=== PATIENT | female | born 1960 | race Caucasian/White ===

== ENCOUNTER 2016-12-02 22:42 | Emergency (ER) | payer MEDICAID, OTHER ==
[~2016-12-02] VITALS: Ht 162.6 cm; Wt 60.5 kg
[2016-12-02 22:47] VITALS: BP 145/102; PULSE 72; RESP 20; O2SAT 95
--- NOTE | 2016-12-03 01:34 | ED.REPORT ---
HPI-Extremity Problem Upper Date of Service December 03, 2016 ED Provider: Alfred Olivia DO A healthy 56 year old female presents to the ED with left wrist pain onset two days ago. The patient denies recent injury/trauma, numbness, weakness, or other symptoms. She has been using her wrist more frequently than usual, specifically flexing and extending, in order to clean up after her ill cat. Nursing Notes Stated Complaint: L HAND PAIN Chief Complaint: Extremity Trauma Nursing Notes Reviewed: Yes Allergies: Coded Allergies: prednisone (Verified Allergy, Mild, 12/02/16) General Time Seen by MD: 00:48 Chief Complaint Other (Left Wrist Pain) Hx Obtained From: Patient Arrived By: Walk-in Onset Occurred: 2 days ago Symptom Duration: Since onset Location: : Wrist left Quality: Painful Severity: Current: Moderate Severity: Maximum: Moderate Pertinent Negative: Relieved by nothing Immunizations: Unknown Recent Healthcare: No recent doctor visit Past Medical History Past Medical History None reported Past Surgical History None reported Smoking History Unknown if Ever Smoker Ambulatory Status Independent Review of Systems Constitutional: Denies: Fever Musculoskeletal: Reports: Joint pain (Left wrist) Neurologic: Denies: Numbness, Weakness Complete sys rev & neg: except as marked. Respiratory: Denies: Non-productive cough, Shortness of breath GI: Denies: Diarrhea, Vomiting Physical Exam Initial Vital Signs Vital Signs (First) Date Time Temp Pulse Resp B/P Pulse Ox O2 Delivery O2 Flow Rate FiO2 12/02/16 22:47 36 72 20 145/102 95 Room Air Initial VS: Reviewed Head / Eyes: Atraumatic, Normocephalic ENT: Conjunctiva normal, No scleral icterus Neck: Supple, Full range of motion Skin: Warm, Dry, No cyanosis Neurologic: Alert, Oriented, Nonfocal Psychiatric: Mood/affect normal, Behavior normal, Normal thought content General/Constitutional: Awake, Alert Wrist / Hand: Atraumatic, Full range of motion, No deformity, Neurologic intact , Vascular intact Left Wrist: Positive: Tenderness present... (Volar wrist) Interpretation & Diagnostics X-Ray Interpretation Xray Interpretation: Degenerative changes No fracture Study Performed: 3 View X-Ray Ordered: Wrist left Interpretation / Wet Read by: Wet read ED physician Re-Eval/Medical Decision Re-Evaluation/Progress : Time of Eval: 01:30 Patient Status: Condition improved Re-Evaluation/Progress Note: Discussed with patient x-ray results, diagnosis, and plan for discharge. Follow-up and return to the ER instructions given. Patient agrees with plan for care and all questions were addressed. Counseled Regarding: Diagnosis, Need for follow-up, When/why to return to ED Discharge & Departure Impression: Primary Impression: Left wrist pain Additional Impression: Tendinitis Disposition: Home Discharge Condition All VS Reviewed: Yes Condition: Improved Patient Instructions: Wrist Injury (GEN), Splint Care (ED) Additional Instructions: I suspect that your pain is related to overuse. Rest your wrist for the next 5 days. Wear the wrist immobilizer. Carpal tunnel syndrome is a possibility as well. I would like you to have a recheck next week. Call your doctor or the referral clinic or the referral orthopedic surgeon for follow-up. You may take 1 -2 [place] every 6 hours as needed for severe pain. [id number] anti- inflammatories as directed for moderate pain. Do not drive or drink alcohol or consume acetaminophen while taking the [place]. I did not appreciate a fracture on your x-rays. Our radiologist will over read this and the official report be available tomorrow. Have this reviewed by your primary care physician as well. Your blood pressure was also elevated. Check this 3 times daily and discussed this in your follow-up. Referrals: NOPCP (PCP) Ryder Brown DO [facility] [employer] Attestation Portions of this note were transcribed by Marjan Russo. I, Dr. Olivia, personally performed the history, physical exam, and medical decision-making; I reviewed and confirmed the accuracy of the information in the transcribed note. Signed by: Rohan Shah, 12/03/2016, 02:45 copies to: Ryder Brown DO; [facility] Alfred Olivia DO December 03, 2016 01:34 MARJAN RUSSO December 03, 2016 01:39
[2016-12-03] MEDS ORDERED: _HYDROcodone/APAP 5-325 mg Tablet PO PRN (01:35)
--- NOTE | 2016-12-03 07:34 | DRSVH ---
PROCEDURE: X-RAY LEFT WRIST COMPLETE, MINIMUM THREE VIEWS ([id number]) INDICATIONS: pain TECHNIQUE: 4 views of the wrist were acquired. COMPARISON: None. FINDINGS: Bones: No fractures or dislocations. No suspicious bony lesions. Scaphoid view: Negative Soft tissues: No suspicious soft tissue calcifications. IMPRESSION: No acute fracture. No osseous lesion. If clinical suspicion and/or symptoms persist, fur ther assessment with repeat plainfilms, or advanced imaging (e.g., CT, MRI, or bone scan) may be help ful for further assessment. Dictated by: Gisella Dai M.D. on 12/03/2016 at 7:32 Approved by: Gisella Dai M.D. on 12/03/2016 at 7:33
== END 2016-12-03 02:17 | disposition home or self-care (01) ==
LOC: SED 22:42
DX: M25.532 Pain in left wrist (principal); M65.842 Other synovitis and tenosynovitis, left hand; Z88.8 Allergy status to other drugs, medicaments and biological substances

== ENCOUNTER 2016-12-27 23:11 | Emergency (ER) | payer OTHER ==
[~2016-12-27] VITALS: Ht 162.6 cm; Wt 58.0 kg
[2016-12-27 23:12] VITALS: BP 132/82; PULSE 70; RESP 16; O2SAT 99
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
[2016-12-28] MEDS ORDERED: CYCL10TA9 PO (02:47)
[2016-12-28] MEDS ORDERED: MELO-259 PO (02:47)
[2016-12-28 02:58] VITALS: BP 128/72; PULSE 72; RESP 16; O2SAT 98
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
== END 2016-12-28 03:02 | disposition home or self-care (01) ==
LOC: SED 23:11
DX: S16.1XXA Strain of muscle, fascia and tendon at neck level, initial encounter (principal); V49.40XA Driver injured in collision with unspecified motor vehicles in traffic accident, initial encounter; Y93.89 Activity, other specified; Y92.410 Unspecified street and highway as the place of occurrence of the external cause; Y99.8 Other external cause status; M47.812 Spondylosis without myelopathy or radiculopathy, cervical region; R51 Headache; F17.200 Nicotine dependence, unspecified, uncomplicated; Z88.8 Allergy status to other drugs, medicaments and biological substances
CPT/HCPCS: 72040; 72125; 96372; 99285; J1885

== ENCOUNTER 2017-02-20 07:16 | Emergency (ER) | payer OTHER ==
[~2017-02-20] VITALS: Ht 162.6 cm; Wt 56.8 kg
[~2017-02-20 07:16] MED LIST: CYCL10TA9 PO; MELO-259 PO
[2017-02-20 07:25] VITALS: BP 167/102; PULSE 67; RESP 18; O2SAT 98
--- NOTE | 2017-02-20 07:41 | ED.REPORT ---
HPI-Abd Pain F 40 and Over Date of Service Feb 20, 2017 ED Provider: Erwin Mcfadden Patient is an otherwise healthy 56 year old female who presents to the ED complaining of nausea onset 4 days ago. Associated symptoms include chills, sweats, cough, and vomiting. She denies dysuria, hematemesis, chest pain, diarrhea, rash, or any other symptoms. She smokes marijuana regularly but has not smoked for the past 2 days. She takes Cymbalta daily and her dose was just increased 2 weeks ago. Nursing Notes Stated Complaint: FEVER/CHILLS/NAUSEA Chief Complaint: Female Abdominal Pain Nursing Notes Reviewed: Yes Allergies: Coded Allergies: prednisone (Verified Allergy, Mild, 12/27/16) Scheduled Meloxicam (Meloxicam) 7.5 Mg Tablet 7.5 MG PO BID Scheduled PRN Cyclobenzaprine (Cyclobenzaprine) 10 Mg Tablet 10 MG PO TID PRN PRN Spasm Ondansetron ODT (Zofran ODT) 4 Mg Tablet 4 MG PO Q4H PRN PRN For Nausea General Time Seen by MD: 07:41 Chief Complaint Nausea Hx Obtained From: Patient Arrived By: Walk-in Sudden in Onset?: Yes Onset Occurred: 4 days ago Symptom Duration: Since onset Risk Factors )( AAA Risk Stratification SmokingNo Hypertension, No Marfan's syndrome, No Prior AAA Risk factors reviewed Past Medical History Past Medical History None reported Past Surgical History Hysterectomy Laparoscopy Rotator cuff x3 Smoking History Current Every Day Smoker Social History Alcohol Use: Denies alcohol use Drug Use: THC Ambulatory Status Independent Review of Systems Constitutional: Reports: Chills Respiratory: Reports: Non-productive cough Cardiovascular: Denies: Chest pain GI: Reports: Nausea, Vomiting, Denies: Diarrhea, Hematemesis Female: Denies: Dysuria Complete sys rev & neg: except as marked. Skin: Reports Diaphoresis, Denies Rash Physical Exam Vital Signs Vital Signs (First) Date Time Temp Pulse Resp B/P Pulse Ox O2 Delivery O2 Flow Rate FiO2 02/20/17 07:25 36.6 67 18 167/102 98 02/20/17 11:58 Room Air Initial VS: Reviewed, Vital signs abnormal Psychiatric: Mood/affect normal, Behavior normal, Normal thought content General/Constitutional: Awake, Alert Distress / Hydration: Positive: Distress moderate Behavior: Positive: Restless Respiratory / Chest: Breath sounds NL, Breath sounds = bilat, No respiratory distress Cardiovascular: Heart rate NL, Regular rhythm, Heart sounds NL Abdomen: Atraumatic, Soft Back: Atraumatic Head / Eyes: Atraumatic, Normocephalic Skin: Warm, Dry Neurologic: Oriented X3, Speech NL Neck: Full range of motion Interpretation & Diagnostics Lab Results Interpretation Result Diagram: 02/20/17 0800 02/20/17 0800 Test 02/20/17 08:00 02/20/17 09:19 White Blood Count 9.9th/mm3 (3.8-10.1) Red Blood Count 4.91mil/mm3 (3.90-5.20) Hemoglobin 14.4g/dL (12.0-15.6) Hematocrit 42.0% (35.0-46.0) Mean Corpuscular Volume 85.5fL (81-100) Mean Corpuscular Hemoglobin 29.3pg (27.0-35.0) Mean Corpuscular Hemoglobin Concent 34.3% (32.0-37.0) Red Cell Distribution Width 14.4% (12.3-15.4) Platelet Count 304bil/L (150-400) Neutrophils (%) (Auto) 74.7% (40-74) Lymphocytes (%) (Auto) 17.7% (14-46) Monocytes (%) (Auto) 7.1% (4-12) Eosinophils (%) (Auto) 0.1% (0-5) Basophils (%) (Auto) 0.2% (0-3) Sodium Level 138mEq/L (134-144) Potassium Level 3.2mEq/L (3.5-5.2) Chloride Level 99mEq/L (97-108) Carbon Dioxide Level 22mmol/L (18-29) Blood Urea Nitrogen 20mg/dL (6-24) Creatinine 0.68mg/dL (0.57-1.00) Estimat Glomerular Filtration Rate 127mL/min (>59) Glucose Level 113mg/dL (60-99) Calcium Level 9.4mg/dL (8.5-10.1) Magnesium Level 2.0mg/dL (1.6-2.6) Total Bilirubin 0.5mg/dL (0.0-1.2) Aspartate Amino Transf (AST/SGOT) 24U/L (0-50) Alanine Aminotransferase (ALT/SGPT) 23U/L (0-32) Alkaline Phosphatase 78U/L (25-150) Troponin T 0.010ug/L (0.0-0.011) Total Protein 7.8g/dL (6.4-8.4) Albumin 4.3g/dL (3.4-5.0) Lipase 31U/L (13-60) Hold Urine Received (Received) Lab Results Interpretation: CT KUB: IMPRESSION: 1. No kidney stones. No abnormality other than a cyst in the left kidney is seen in the kidneys, ureters, and bladder. Dictated by: Zachary Hannah M.D. on 02/20/2017 at 12:10 Approved by: Zachary Hannah M.D. on 02/20/2017 at 12:17 ECG Interpretation ECG Interpretation: Sinus rate 63 No ischemia QTC 455 Time: 09:25 Interpreted by: ED physician Re-Eval/Medical Decision Med Decision/Clinical Course Benign abdominal exam, no vomiting while in the ER only complains of nausea however able to tolerate both oral solids and liquids well in the ER. Extensive workup performed and no obvious source for this. Her blood pressures minimally normal however does not seem to represent hypertensive emergency. Discharged with Zofran and follow-up and return precautions Re-Evaluation/Progress #1: Time of Eval: 10:22 )( Re-Eval Abdomen: Soft Re-Evaluation/Progress Note: Rechecked patient. She is still nauseous and has not tried to eat or drink anything. Re-Evaluation/Progress #2: Time of Eval: 12:25 )( Re-Eval Abdomen: Soft Re-Evaluation/Progress Note: Pt tolerated oral liquids and solids well without vomiting. Discussed plan for discharge. Patient understands and agrees with plan. All questions addressed at this time. Counseled Regarding: Diagnosis, Lab results, Need for follow-up, When/why to return to ED Discharge & Departure Primary Impression: Nausea Disposition: Home Discharge Condition All VS Reviewed: Yes Condition: Improved Additional Instructions: Thank you for entrusting us with your care. We did not identify a dangerous cause for your symptoms at this time. You make take Zofran as needed for your nausea. Return to the emergency department for new or worsening symptoms. Referrals: NOPCP (PCP) Scribe Attestation Portions of this note were transcribed by Padmini Mora. I, Dr. Mcfadden personally performed the history, physical exam and medical decision-making; I reviewed and confirmed the accuracy of the information in the transcribed note. Signed by: Rohan Quiroz, 02/20/17 at 1227 Erwin Mcfadden DO Feb 20, 2017 07:41 PADMINI MORA Feb 20, 2017 07:53
[2017-02-20] MEDS ORDERED: 0.9% Sodium Chloride 1,000 ML IV ONE (07:52)
[2017-02-20] MEDS ORDERED: Promethazine Inj 25 MG in 0.9% Sodium Chloride 50 ML IV ONE (07:55)
[2017-02-20 08:17] LABS: Mean Corpuscular Hemoglobin 29.3 pg (27.0-35.0); Mean Corpuscular Volume 85.5 fL (81-100)
[2017-02-20 08:18] LABS: BASOPHILS % (AUTO) 0.2 % (0-3); EOSINOPHILS % (AUTO) 0.1 % (0-5); MONOCYTES % (AUTO) 7.1 % (4-12); NEUTROPHILS % (AUTO) 74.7 % (40-74); Platelet Count 304 bil/L (150-400)
[2017-02-20] MEDS ORDERED: Haloperidol 5 mg/mL Inj IM ONE (09:10)
[2017-02-20 11:58] VITALS: BP 155/75; PULSE 65; RESP 16; O2SAT 99
--- NOTE | 2017-02-20 12:19 | DRSVH ---
PROCEDURE: CT KUB ([id number]) INDICATIONS: VOMITING, hematuria TECHNIQUE: Noncontrast 5 mm thick sections acquired from the diaphragms to the symphysis. 5 mm thick coronal an d sagittal reformats were then performed. For radiation dose reduction, the following was used: aut omated exposure control, adjustment of mA and/or kV according to patient size. COMPARISON: None. FINDINGS: Image quality: Grade Lung bases: Lung bases are clear. Heart size is normal. Urinary system: Both kidneys are normal in size. No kidney stones. There is a 2 cm area of decrease d attenuation posteriorly at the mid to upper pole of the left kidney. Hounsfield units are less than 10 indicating it is likely to be a cyst. No hydronephrosis or perinephric fat stranding there is an area of decreased attenuation approximately 2 cm in size posteriorly on the left at the mid to lower . Both ureters appear non-dilated throughout their expected courses. Bladder wall thickness is norm al; no calcified bladder stones. Other solid organs: Liver and spleen are normal in size. Gallbladder shows no abnormality.. Pancre as is normal in contours. No adrenal nodules. Peritoneum and bowel: Unenhanced bowel loops demonstrate normal wall thickness and caliber. No free fluid or air. A normal appendix is present. Nodes and vessels: No retroperitoneal or mesenteric adenopathy by size criteria. Aorta and inferior vena cava are normal in caliber. Abdominal wall: No ventral hernias. Pelvis: No free pelvic fluid. No inguinal hernias or adenopathy. Uterus is thought to be removed. N either ovary is seen. Bones: No suspicious bony lesions. No vertebral body compression fractures. IMPRESSION: 1. No kidney stones. No abnormality other than a cyst in the left kidney is seen in the kidneys, uret ers, and bladder. Dictated by: Zachary Hannah M.D. on 02/20/2017 at 12:10 Approved by: Zachary Hannah M.D. on 02/20/2017 at 12:17
[2017-02-20] MEDS ORDERED: Ondansetron 8 mg ODT Tablet PO ONE (12:20)
[2017-02-20] MEDS ORDERED: ONDA4TAB9 PO (12:29)
[2017-02-20 12:41] VITALS: BP 162/90; PULSE 70; RESP 18; O2SAT 99
== END 2017-02-20 12:45 | disposition home or self-care (01) ==
LOC: SED 07:16
DX: R11.2 Nausea with vomiting, unspecified (principal); R05 Cough; F17.200 Nicotine dependence, unspecified, uncomplicated; Z88.8 Allergy status to other drugs, medicaments and biological substances
CPT/HCPCS: 36415; 74176; 80053; 83690; 83735; 84484; 85025; 93005; 96361; 96372; 96374; 99285; J1630; J2550; J7030

== ENCOUNTER 2017-02-22 16:15 | Emergency (ER) | payer OTHER ==
[~2017-02-22] VITALS: Ht 162.6 cm; Wt 56.8 kg
[~2017-02-22 16:15] MED LIST changes: +ONDA4TAB9 PO
[2017-02-22 16:40] VITALS: BP 103/65; PULSE 128; RESP 18; O2SAT 98
--- NOTE | 2017-02-22 18:47 | ED.REPORT ---
HPI-Dizziness / Weakness Date of Service Feb 22, 2017 ED Provider: Rei Summers MD Pt is a generally healthy 56 y/o female presenting to the ED c/o dizziness onset this morning. The patient was in the ED 3 days ago after experiencing chills, nausea, vomiting, and thirst. Her workup was negative and she was discharged. These symptoms seemed to improve. This morning the patient woke up at 06:30 experiencing dizziness and stating that her "legs were giving up on her " which is associated with near-syncope. She states she did lose consciousness a few times but not for more than seconds at a time. These symptoms have been persistent since this morning and are exacerbated by transitioning from sitting to standing. She denies spinning-sensation dizziness, vomiting, fever, chills. The patient believes she may be dehydrated. She has experienced vertigo previously and this is completely different. Pt denies nausea, vomiting, CP, SOB , dysuria, urinary frequency, urinary urgency, hematuria, bloody stools. She believes she has lost about 10 lbs in the period of 1 month due to lack of appetite. Nursing Notes Stated Complaint: NAUSEA,DIZZY Chief Complaint: General Complaint Nursing Notes Reviewed: Yes (Panvidea not reconciled) Allergies: Coded Allergies: prednisone (Verified Allergy, Mild, 12/27/16) Scheduled Meloxicam (Meloxicam) 7.5 Mg Tablet 7.5 MG PO BID Scheduled PRN Cyclobenzaprine (Cyclobenzaprine) 10 Mg Tablet 10 MG PO TID PRN PRN Spasm Ondansetron ODT (Zofran ODT) 4 Mg Tablet 4 MG PO Q4H PRN PRN For Nausea General Time Seen by MD: 18:45 Chief Complaint Dizzy Hx Obtained From: Patient Arrived By: Walk-in Onset Occurred: 5 - 8 hours ago Symptom Duration: Since onset Severity: Current: No pain currently Severity: Maximum: No pain Recent Healthcare: Recent doctor visit, Recent testing Similar Sx Previous: No Past Medical History Past Medical History Notes: Seen in ED recently for nausea Past Medical History Cervical spine arthritis Past Surgical History Hysterectomy 1994 Laparoscopy Rotator cuff x3 Smoking History Current Every Day Smoker Social History Alcohol Use: Denies alcohol use Drug Use: THC Ambulatory Status Independent Review of Systems Constitutional: Denies: Chills, Fever Respiratory: Denies: Shortness of breath Cardiovascular: Denies: Chest pain GI: Denies: Abdominal pain, Nausea, Vomiting Neurologic: Reports: Change LOC, Dizziness, Lightheaded, Syncope, Weakness, Denies: Headache, Spinning sensation Complete sys rev & neg: except as marked. Female: Denies: Dysuria, Hematuria, Urinary frequency, Urinary urgency Physical Exam Initial Vital Signs Vital Signs (First) Date Time Temp Pulse Resp B/P Pulse Ox O2 Delivery O2 Flow Rate FiO2 02/22/17 16:40 36.8 128 18 103/65 98 Room Air Initial VS: Reviewed, Vital signs abnormal ENT: Mucous membranes moist, Conjunctiva normal, No scleral icterus Neck: Supple, Full range of motion Abdomen / GI: Soft, Non-tender Extremities: Vascular intact, Neuro intact, No swelling Skin: Warm, Dry, No cyanosis Psychiatric: Mood/affect normal, Behavior normal, Normal thought content General/Constitutional: Awake, Alert, No acute distress, Well appearing, Cooperative, Not toxic appearing Appearance / Presentation: Positive: Cachectic Head / Eyes: Atraumatic, Normocephalic Respiratory / Chest: Breath sounds NL, Breath sounds = bilat, No respiratory distress, No rales, No rhonchi, No wheezing Cardiovascular: Regular rhythm, Heart sounds NL, No murmurs Heart Rate / Rhythm: Positive: Tachycardia (mild) Neurologic: Oriented X3, Speech NL, No motor deficits, Memory NL Interpretation & Diagnostics Lab Results Interpretation Result Diagram: 02/22/17194202/22/171942 Test 02/22/17 19:43 02/22/17 20:00 White Blood Count 12.8th/mm3 (3.8-10.1) Red Blood Count 5.25mil/mm3 (3.90-5.20) Hemoglobin 15.2g/dL (12.0-15.6) Hematocrit 43.9% (35.0-46.0) Mean Corpuscular Volume 83.6fL (81-100) Mean Corpuscular Hemoglobin 29.0pg (27.0-35.0) Mean Corpuscular Hemoglobin Concent 34.6% (32.0-37.0) Red Cell Distribution Width 13.9% (12.3-15.4) Platelet Count 346bil/L (150-400) Neutrophils (%) (Auto) 62.7% (40-74) Lymphocytes (%) (Auto) 29.5% (14-46) Monocytes (%) (Auto) 7.2% (4-12) Eosinophils (%) (Auto) 0.2% (0-5) Basophils (%) (Auto) 0.2% (0-3) D-Dimer < 0.50mg/L FEU (<0.50) Sodium Level 137mEq/L (134-144) Potassium Level 3.1mEq/L (3.5-5.2) Chloride Level 95mEq/L (97-108) Carbon Dioxide Level 22mmol/L (18-29) Blood Urea Nitrogen 23mg/dL (6-24) Creatinine 1.10mg/dL (0.57-1.00) Estimat Glomerular Filtration Rate 73mL/min (>59) Glucose Level 97mg/dL (60-99) Lactic Acid Level 1.4mmol/L (0.4-2.0) Calcium Level 9.8mg/dL (8.5-10.1) Total Bilirubin 0.7mg/dL (0.0-1.2) Aspartate Amino Transf (AST/SGOT) 23U/L (0-50) Alanine Aminotransferase (ALT/SGPT) 25U/L (0-32) Alkaline Phosphatase 74U/L (25-150) Troponin T < 0.010ug/L (0.0-0.011) Total Protein 7.9g/dL (6.4-8.4) Albumin 4.3g/dL (3.4-5.0) Lipase 44U/L (13-60) Urine Color Yellow (YELLOW) Urine Appearance Clear (CLEAR,HAZY) Urine pH 5.5 (5.0-8.0) Urine Specific [place] 1.025 (1.003-1.035) Urine Protein 30mg/dL (NEG,TRACE) Urine Glucose (UA) Negativemg/dL (NEGATIVE) Urine Ketones Negativemg/dL (NEGATIVE) Urine Occult Blood Negative (NEGATIVE) Urine Nitrite Negative (NEGATIVE) Urine Bilirubin Negative (NEGATIVE) Urine Urobilinogen Normalmg/dL (NORMAL) Urine Leukocyte Esterase Negative (NEGATIVE) Urine RBC 0-2/hpf (0-2) Urine WBC 0-5/hpf (0-5) Urine Epithelial Cells Few/hpf (NONE-MOD) Urine Crystals None seen (NONE SEEN) Urine Bacteria Few/hpf (NONE-FEW) Urine Hyaline Casts None/lpf (NONE) Urine Granular Casts None seen (NONE SEEN) Urine Waxy Casts None seen (NONE SEEN) Urine Red Blood Cell Casts None seen (NONE SEEN) Urine White Blood Cell Casts None seen (NONE SEEN) Urine Mucus Present (None Seen) Urine Trichomonas None seen (NONE SEEN) Urine Yeast None (NONE SEEN) Urinalysis Comment None Urine Culture Reflexed Not indicated Lab Results Interpretation: CBC nonspecific leukocytosis CMP mild hypokalemia and Lactic acid normal D-dimer negative Troponin negative ECG Interpretation Time: 19:30 Interpreted by: ED physician Normal ECG Interpretation: Normal ECG w/ rate of... (77), Normal rate, Normal sinus rhythm, No acute ischemic changes, Normal QRS, Normal axis, Normal intervals, No change from prior ECGs, Adequate tracing X-Ray Chest Interpretation Chest Xray Interpretation: IMPRESSION: 1. Findings compatible with COPD without acute consolidation. Dictated by: Kareem Gandhi M.D. on 02/22/2017 at 20:01 Approved by: Kareem Gandhi M.D. on 02/22/2017 at 20:02 View: Portable, AP & lat Interpretation / Wet Read by: Interpret - Radiologist Re-Eval/Medical Decision Med Decision/Clinical Course This is a 56-year-old female presents complaining of dizziness and near syncope when standing. She was seen earlier this week for nausea on Sunday but reported that resolved. However she does think her intake has been poor the past few days. She has not had a fever, not has vomiting, diarrhea, she denies any vertiginous component as she reports she has had vertigo in the past. She denies pleuritic chest pain or palpitations. House she "passed out", but then when you pursue it she never actually collapsed to the floor, never fully lost consciousness and did not experience true syncope-just near syncope. Clearly he has clinical orthostasis. At triage she is noted to be tachycardic, but when I go to evaluate her heart rates are normal. Her EKG demonstrates normal sinus rhythm without tachycardia. I was a repeat visit, with these symptoms an IV is placed and labs were obtained. Blood work revealed a nonspecific leukocytosis, but the patient has no clear findings of a bacterial infection, sheet surgical process. D-dimer is negative. Troponin is negative. I am not finding clear markers or cardiopulmonary etiology. She does report an unanticipated weight loss and is a smoker so chest x-ray is obtained and this was also negative. The patient was hydrated given she reports decreased intake and the nausea earlier this week -his symptoms resolved with IV fluid, although the patient was never formally orthostatic by vital signs-just symptoms. At this point I am not finding it dangerous etiology in a [place] need for additional testing or intervention, patient feels much improved. Routine and return precautions were provided. Reassurance provided. The patient is discharged in improved condition. Source of Hx: Old records Re-Evaluation/Progress : Time of Eval: 21:43 Re-Evaluation/Progress Note: Pt rechecked. Informed pt of plan for discharge. Pt understands and agrees with plan for discharge. F/U instructions and RTER warnings given. All questions addressed. Differential Diagnosis: Positive: Dehydration, Negative: Acute coronary syndrome, Anemia, Benign parox vertigo, Carbon monoxide poisoning, Cerebrovascular accident, Dysrhythmia, Hyperventilation syndrome, Intracranial bleed, Migraine disorder, Myocardial infarction, Organophosphate poisoning, Periodic paralysis, Pulmonary embolus, Subarachnoid hemorrhage Counseled Regarding: Diagnosis, Lab results, Need for follow-up, When/why to return to ED Patient Discharge & Departure Impression: Primary Impression: Dizziness Additional Impression: Dehydration Disposition: Home Discharge Condition All VS Reviewed: Yes Condition: Stable Additional Instructions: 1. You had a mild elevation of the white count, which can happen a mild infection such as a viral infection. No markers of a bacterial infection or other dangerous cause was evident. 2. Your potassium was on the low end, not severe enough to cause her symptoms. Continue to eat bananas and fruit to keep your potassium elevated. 3. I suspect a component of dehydration, and likely a mild viral infection is causing her symptoms. These symptoms are expected to improve with time. Take it easy. Drink plenty of fluids, try eating more as well. 4. Activities as tolerated - need to take it varies if the next 1-2 days, but symptoms are expected to improve and resolve with time. 5. Return again if new or worsening symptoms occur. 6. If you need a primary care provider, follow up with the [facility]. Referrals: [facility]OPCP (PCP) [facility] Scribe Attestation Portions of this note were transcribed by Julio Tello. I, Dr. Summers personally performed the history, physical exam and medical decision-making; I reviewed and confirmed the accuracy of the information in the transcribed note. Rei Summers MD Feb 22, 2017 18:47 JULIO TELLO Feb 22, 2017 19:04
[2017-02-22] MEDS ORDERED: 0.9% Sodium Chloride 1,000 ML IV ONE ×2 (18:50→20:20)
[2017-02-22] MEDS ORDERED: Ondansetron 2 mg/mL 2 mL Inj IVPUSH ONE (18:50)
[2017-02-22 19:51] LABS: BASOPHILS % (AUTO) 0.2 % (0-3); EOSINOPHILS % (AUTO) 0.2 % (0-5); MONOCYTES % (AUTO) 7.2 % (4-12); Mean Corpuscular Volume 83.6 fL (81-100); NEUTROPHILS % (AUTO) 62.7 % (40-74); Platelet Count 346 bil/L (150-400)
--- NOTE | 2017-02-22 20:03 | DRSVH ---
PROCEDURE: X-RAY CHEST, TWO VIEWS ([id number]) INDICATIONS: weight loss, smoker TECHNIQUE: 2 views of the chest were acquired. COMPARISON: None. FINDINGS: Surgical changes and devices: None. Lungs and pleura: No pleural effusions or pneumothorax. Lungs are clear. There is hyperinflation o f the lungs with flattening of the hemidiaphragms compatible with COPD. Mediastinum: Mediastinal contours are normal. Heart size is normal. Bones and chest wall: No suspicious bony abnormalities. Soft tissues appear unremarkable. IMPRESSION: 1. Findings compatible with COPD without acute consolidation. Dictated by: Kareem Gandhi M.D. on 02/22/2017 at 20:01 Approved by: Kareem Gandhi M.D. on 02/22/2017 at 20:02
[2017-02-22 20:12] LABS: TROPONIN T < 0.010 ug/L (0.0-0.011)
[2017-02-22 20:30] LABS: APPEARANCE,URINE CLEAR (CLEAR,HAZY); COLOR,URINE YELLOW (YELLOW); OCCULT BLOOD,URINE NEGATIVE (NEGATIVE); PH,URINE 5.5 (5.0-8.0); UROBILINOGEN,URINE NORMAL (NORMAL)
[2017-02-22 20:33] LABS: Lipase 44 U/L (13-60)
[2017-02-22 20:36] VITALS: BP 114/69; PULSE 70; RESP 20; O2SAT 98
[2017-02-22 22:09] VITALS: BP 125/67; PULSE 68; RESP 20; O2SAT 98
== END 2017-02-22 22:10 | disposition home or self-care (01) ==
LOC: SED 16:15
DX: R42 Dizziness and giddiness (principal); E86.0 Dehydration; F17.200 Nicotine dependence, unspecified, uncomplicated; Z86.73 Personal history of transient ischemic attack (TIA), and cerebral infarction without residual deficits; Z88.8 Allergy status to other drugs, medicaments and biological substances
CPT/HCPCS: 36415; 71020; 80053; 81000; 83605; 83690; 84484; 85025; 85378; 87040; 93005; 96361; 96374; 99285; J2405; J7030